=== PATIENT | male | born 1940 | race Caucasian/White ===

== ENCOUNTER → 2023-07-16 08:15 | Outpatient (REF) | payer MEDICARE, SELFPAY | LOC: DHCBS MAIN 08:15 | PROVIDERS: ATTENDING PHYSICIAN Internal Medicine Cardiovascular Disease; FAMILY PHYSICIAN Family Medicine | DX: I35.0 Nonrheumatic aortic (valve) stenosis (principal) | CPT/HCPCS: 93306 ==

== ENCOUNTER → 2023-11-12 14:22 | Outpatient (REF) | payer MEDICARE, SELFPAY | LOC: RAD 14:22 | PROVIDERS: ATTENDING PHYSICIAN Orthopaedic Surgery; FAMILY PHYSICIAN Family Medicine | DX: M79.662 Pain in left lower leg (principal) | CPT/HCPCS: 93971 ==

== ENCOUNTER → 2024-06-11 07:10 | Outpatient (REF) | payer MEDICARE, SELFPAY | LOC: RCS 07:10 | PROVIDERS: ATTENDING PHYSICIAN Internal Medicine Cardiovascular Disease; FAMILY PHYSICIAN Family Medicine | DX: I35.0 Nonrheumatic aortic (valve) stenosis (principal) | CPT/HCPCS: 93306 ==